=== PATIENT | male | born 1960 | race Caucasian/White ===

== ENCOUNTER 2016-07-06 10:53 | Emergency (ER) | payer MEDICARE, MEDICAID ==
[2016-07-06] MEDS ORDERED: Albuterol/Ipratropium NEB.SOL* Albuterol 2.5 MG/Ipratropium 0.5 MG 3 ML INH ONE (11:43)
[2016-07-06] MEDS ORDERED: Ketorolac INJ* 30 MG/ML 1 ML VIAL IV ONE (11:43)
[2016-07-06 11:54] LABS: Hematocrit 42 % (42-52); Hemoglobin 14.1 g/dl (14.0-18.0); Mean Corpuscular HGB Conc 33 g/dl (31-36); Mean Corpuscular Hemoglobin 31 pg (27-31); Mean Corpuscular Volume 92 fL (80-94); Mean Platelet Volume 8 um3 (7.4-10.4); Red Blood Count 4.62 10^6/ul (4.0-5.4); Red Cell Distribution Width 14 % (10.5-15); White Blood Count 10.4 10^3/ul (3.5-10.8)
[2016-07-06 12:05] LABS: ALT 8 U/L (7-52); Alkaline Phosphatase 54 U/L (34-104); BUN/Creatinine Ratio 16.5 (8-20); Blood Urea Nitrogen 17 mg/dL (6-24); CO2 Carbon Dioxide 29 mmol/L (22-32); Calcium 9.2 mg/dL (8.6-10.3); Chloride 104 mmol/L (101-111); EGFR African American 95.7 (>60); EGFR Non-African American 74.4 (>60); Glucose 122 mg/dL (70-100); Sodium 137 mmol/L (133-145)
--- NOTE | 2016-07-06 12:29 | RAD ---
INDICATION: Chest pain COMPARISON: Similar chest x-ray dated May 13, 2015 TECHNIQUE: PA and lateral views of the chest were obtained. FINDINGS: The heart and mediastinum are normal in size and contour. The lungs are grossly clear. There is no evidence of large pleural effusion. Visualized bones are normal for the patient's age. There is no radiographic evidence of free air beneath the diaphragm IMPRESSION: No radiographic evidence of acute cardiopulmonary disease.
--- NOTE | 2016-07-06 12:35 | RAD ---
INDICATION: Lower back and lower extremity pain. COMPARISON: MRI of the lumbar spine that depicted mild multilevel degenerative disc disease. TECHNIQUE: Contiguous axial sections were obtained beginning lower thoracic vertebra and continuing through the sacrum. Images were reconstructed in the sagittal and coronal planes. FINDINGS: The vertebra are in normal alignment. No fracture is seen. There is no hyperdense material in the thecal sac to indicate acute hemorrhage. Degenerative changes include loss of intervertebral disc height and a mild degree of marginal osteophyte formation.. Mild intervertebral disc protrusion combines with facet arthropathy and thickening of ligamentum flavum to cause very mild central canal stenosis at L2/L3, L3/L4 and L4/L5. The visualized soft tissues do not exhibit any acute abnormalities. There is mild to moderate calcified atherosclerosis of the abdominal aorta and bilateral common iliac arteries. IMPRESSION: 1. Mild multilevel degenerative changes of the lumbar spine without evidence of acute fracture or dislocation. Superior characterization of the lumbar soft tissue and neural structures was acquired on the January 22, 2016 MRI. 2. Mild to moderate calcified atherosclerosis. Please correlate to signs and symptoms of pelvic and lower extremity arterial deficiency.
[2016-07-06 15:33] VITALS: BP 97/59
--- NOTE | 2016-07-06 15:48 | ED ---
jennifer Horton Timothy, scribed for Akil Hogan MD on 07/06/16 at 1136 . Shortness of Breath - HPI Summary HPI Summary: Jose Manuel Mcnamara is a 56 yo male presenting to [facility] with 8/10 intermittent sharp CP with cough, increased SOB, and N/V since 07/03/16. He states he also has burning sensation originally in his left leg from his waist to his kneecap on the inside for the past 2 months, and it has recently spread to his right leg. he states coughing makes his CP worse. Pt is on O2 at home, and still smokes heavily. His Hx includes emphysema, MA, COPD, and "upper respiratory failure per Pt. - History of Current Complaint Chief Complaint: EDChestPainROMI Time Seen by Provider: 07/06/16 11:13 Hx Obtained From: Patient Onset/Duration: Gradual Onset, Lasting Days, Still Present Timing: Constant Current Severity: Moderate Dyspnea At: Rest Aggrevating Factors: Deep Breaths - /coughing Alleviating Factors: Nothing Associated Signs & Symptoms: Cough (Productive), Chest Pain w/Cough - Allergy/Home Medications Allergies/Adverse Reactions: Allergies Allergy/AdvReac Type Severity Reaction Status Date / Time No Known Allergies Allergy Verified 07/06/16 10:58 PMH/Surg Hx/FS Hx/Imm Hx Endocrine/Hematology History: Denies: Hx Diabetes, Hx Thyroid Disease Cardiovascular History: Reports: Hx Angina - cardiac cath without stents, Hx Hypercholesterolemia Denies: Hx Congestive Heart Failure, Hx Hypertension, Hx Pacemaker/ICD, Hx Peripheral Vascular Disease Comment Only: Hx Myocardial Infarction - not sure once was told ekg looked that way ,but then told no. Respiratory History: Reports: Hx Asthma, Hx Chronic Obstructive Pulmonary Disease (COPD), Hx Sleep Apnea - didn't go to follow up appt with sleep MD, Other Respiratory Problems/Disorders - CHF & COPD GI History: Reports: Other GI Disorders History: Denies: Hx Renal Disease Musculoskeletal History: Denies: Hx Arthritis, Hx Osteoporosis Sensory History: Denies: Hx Cataracts, Hx Contacts or Glasses, Hx Glaucoma, Hx Hearing Aid Opthamlomology History: Denies: Hx Cataracts, Hx Contacts or Glasses, Hx Glaucoma Neurological History: Reports: Hx Migraine - daily migraines, Other Neuro Impairments/Disorders - FAMILY HX ANEURYSM Denies: Hx Headaches, Hx Seizures, Hx Transient Ischemic Attacks (TIA) Psychiatric History: Denies: Hx Anxiety, Hx Depression, Hx Panic Disorder - Surgical History Surgery Procedure, Year, and Place: CARDIAC CATH - NO STENTING Hx Anesthesia Reactions: No Infectious Disease History: No Infectious Disease History: Denies: Traveled Outside the [place] in Last 30 Days - Family History Known Family History: Positive: Cardiac Disease, Hypertension Negative: Diabetes - Social History Alcohol Use: None Substance Use Type: Reports: None Smoking Status (MU): Former Smoker Type: Cigarettes Amount Used/How Often: 2ppd then 1ppd then 3cpd and now none Length of Time of Smoking/Using Tobacco: 40 years Have You Smoked in the Last Year: Yes Review of Systems Constitutional: Negative Eyes: Negative ENT: Negative Positive: Chest Pain Positive: Shortness Of Breath, Cough Positive: Vomiting, Nausea Genitourinary: Negative Positive: Other - pain bilaterally from waist to knee cap on inside, worse on left side Skin: Negative Neurological: Negative Psychological: Normal All Other Systems Reviewed And Are Negative: Yes Physical Exam Triage Information Reviewed: Yes Vital Signs On Initial Exam: Initial Vitals Temp Pulse Resp BP Pulse Ox 98.8 F 81 15 129/71 100 07/06/16 10:54 07/06/16 10:54 07/06/16 10:54 07/06/16 10:54 07/06/16 10:54 Vital Signs Reviewed: Yes Appearance: Positive: Well-Appearing, No Pain Distress, Well-Nourished Skin: Positive: Warm, Skin Color Reflects Adequate Perfusion, Dry Head/Face: Positive: Normal Head/Face Inspection Eyes: Positive: Normal ENT: Positive: Normal ENT inspection Neck: Positive: Supple, Nontender Respiratory/Lung Sounds: Positive: Clear to Auscultation, Breath Sounds Present , Wheezes - all lung alston Cardiovascular: Positive: RRR Abdomen Description: Positive: Nontender, Soft Bowel Sounds: Positive: Present Musculoskeletal: Positive: Normal Neurological: Positive: Normal Psychiatric: Positive: Normal Diagnostics - Vital Signs Vital Signs Temp Pulse Resp BP Pulse Ox 07/06/16 10:54 98.8 F 81 15 129/71 100 - Laboratory Lab Results: Lab Results 07/06/16 07/06/16 07/06/16 Range/Units 11:20 11:20 11:20 WBC 10.4 (3.5-10.8) 10^3/ul RBC 4.62 (4.0-5.4) 10^6/ul Hgb 14.1 (14.0-18.0) g/dl Hct 42 (42-52) % MCV 92 (80-94) fL MCH 31 (27-31) pg MCHC 33 (31-36) g/dl RDW 14 (10.5-15) % Plt Count 264 (150-450) 10^3/ul MPV 8 (7.4-10.4) um3 Neut % (Auto) 77.4 (38-83) % Lymph % (Auto) 13.2 L (25-47) % Morrison % (Auto) 6.8 (1-9) % Eos % (Auto) 2.1 (0-6) % Baso % (Auto) 0.5 (0-2) % Absolute Neuts (auto) 8.0 H (1.5-7.7) 10^3/ul Absolute Lymphs (auto) 1.4 (1.0-4.8) 10^3/ul Absolute Monos (auto) 0.7 (0-0.8) 10^3/ul Absolute Eos (auto) 0.2 (0-0.6) 10^3/ul Absolute Basos (auto) 0.1 (0-0.2) 10^3/ul Absolute Nucleated RBC 0 10^3/ul Nucleated RBC % 0 Sodium 137 (133-145) mmol/L Potassium TNP Chloride 104 (101-111) mmol/L Carbon Dioxide 29 (22-32) mmol/L Anion Gap TNP BUN 17 (6-24) mg/dL Creatinine 1.03 (0.67-1.17) mg/dL Est GFR ( Amer) 95.7 (>60) Est GFR (Non-Af Amer) 74.4 (>60) BUN/Creatinine Ratio 16.5 (8-20) Glucose 122 H (70-100) mg/dL Lactic Acid 1.2 (0.5-2.0) mmol/L Calcium 9.2 (8.6-10.3) mg/dL Total Bilirubin 0.40 (0.2-1.0) mg/dL AST TNP ALT 8 (7-52) U/L Alkaline Phosphatase 54 (34-104) U/L Troponin I 0.00 (<0.04) ng/mL Total Protein 7.0 (6.4-8.9) g/dL Albumin 4.0 (3.2-5.2) g/dL Globulin 3.0 (2-4) g/dL Albumin/Globulin Ratio 1.3 (1-3) 07/06/16 07/06/16 Range/Units 13:10 14:55 WBC (3.5-10.8) 10^3/ul RBC (4.0-5.4) 10^6/ul Hgb (14.0-18.0) g/dl Hct (42-52) % MCV (80-94) fL MCH (27-31) pg MCHC (31-36) g/dl RDW (10.5-15) % Plt Count (150-450) 10^3/ul MPV (7.4-10.4) um3 Neut % (Auto) (38-83) % Lymph % (Auto) (25-47) % Morrison % (Auto) (1-9) % Eos % (Auto) (0-6) % Baso % (Auto) (0-2) % Absolute Neuts (auto) (1.5-7.7) 10^3/ul Absolute Lymphs (auto) (1.0-4.8) 10^3/ul Absolute Monos (auto) (0-0.8) 10^3/ul Absolute Eos (auto) (0-0.6) 10^3/ul Absolute Basos (auto) (0-0.2) 10^3/ul Absolute Nucleated RBC 10^3/ul Nucleated RBC % Sodium (133-145) mmol/L Potassium 4.2 Chloride (101-111) mmol/L Carbon Dioxide (22-32) mmol/L Anion Gap BUN (6-24) mg/dL Creatinine (0.67-1.17) mg/dL Est GFR ( Amer) (>60) Est GFR (Non-Af Amer) (>60) BUN/Creatinine Ratio (8-20) Glucose (70-100) mg/dL Lactic Acid (0.5-2.0) mmol/L Calcium (8.6-10.3) mg/dL Total Bilirubin (0.2-1.0) mg/dL AST 12 L ALT (7-52) U/L Alkaline Phosphatase (34-104) U/L Troponin I 0.00 (<0.04) ng/mL Total Protein (6.4-8.9) g/dL Albumin (3.2-5.2) g/dL Globulin (2-4) g/dL Albumin/Globulin Ratio (1-3) Result Diagrams: 07/06/16 11:20 07/06/16 13:10 Lab Statement: Any lab studies that have been ordered have been reviewed, and results considered in the medical decision making process. - Radiology CXR Xray Interpretation: No Acute Changes - IMPRESSION: No radiographic evidence of acute cardiopulmonary disease. Radiology Interpretation Completed By: Radiologist - CT L-Spine CT Interpretation: No Acute Changes - IMPRESSION: 1. Mild multilevel degenerative changes of the lumbar spine without evidence of acute fracture or dislocation. Superior characterization of the lumbar soft tissue and neural structures was acquired on the January 22, 2016 MRI. 2. Mild to moderate calcified atherosclerosis. Please correlate to signs and symptoms of pelvic and lower extremity arterial deficiency. CT Interpretation Completed By: Radiologist - EKG 1100 Cardiac Rate: NL EKG Rhythm: Sinus Rhythm EKG Interpretation: NSR @ 79 BPM, normal EKG Re-Evaluation - Re-Evaluation First Eval Re-Evaluation Time: 15:14 Change: Improved Comment: Pt condition has improved. Course/Dx - Course Assessment/Plan: Jose Manuel Mcnamara is a 56 yo male presenting to [facility] with CP and burning pain in his legs. His Ct showed PVD as well as DDD. His leg pain is clearly not claudication but seems more radicular. His CP is musculoskeletal. After review of his lab work and imaging studies, he was Dx with sciatica, and will be given instructions to follow up with Dr. King. - Diagnoses Provider Diagnoses: Sciatica Discharge - Discharge Plan Condition: Stable Disposition: HOME Patient Education Materials: Sciatica (ED) Referrals: Red King MD [Primary Care Provider] - 2 Days Additional Instructions: Please follow up with your primary care physician regarding your visit to the emergency department today. Return to the emergency department with any new or recurring symptoms. The documentation as recorded by the jennifer abebe Timothy accurately reflects the service I personally performed and the decisions made by me, Akil Hogan MD.
== END 2016-07-06 15:33 | disposition home or self-care (01) ==
LOC: ED 10:53
DX: M54.30 Sciatica, unspecified side (principal); R06.02 Shortness of breath; R07.9 Chest pain, unspecified; R05 Cough; R11.2 Nausea with vomiting, unspecified; Z87.891 Personal history of nicotine dependence
CPT/HCPCS: 36415; 71020; 72131; 80053; 83605; 84484; 85025; 93005; 94640; 96374; 99283; A9270-GY; J1885